=== PATIENT | male | born 1975 | race Caucasian/White ===

== ENCOUNTER 2017-10-18 18:05 | Inpatient (IN) | payer OTHER ==
[~2017-10-18] VITALS: Ht 182.9 cm; Wt 95.1 kg
[~2017-10-18 18:05] MED LIST: EPIN0.3P8 IM
[2017-10-18] MEDS ORDERED: amiodarone 150mg/dext, iso-os 100 ML IV ONE (18:07)
[2017-10-18] MEDS ORDERED: epiNEPHrine 1 mg/ml inj IV STA (18:11)
[2017-10-18] MEDS ORDERED: calcium chloride 100 MG/1 ML inj IV ONE (18:12)
[2017-10-18] MEDS ORDERED: sodium bicarbonate (8.4%) 1 mEq/ml syringe IV ONE (18:15)
[2017-10-18] MEDS ORDERED: epiNEPHrine inj 5 MG in normal saline 250ml IV soln 245 ML IV ONE (18:30)
[2017-10-18 18:41] LABS: ABG BASE EXCESS -7.9 mmol/L (-2.0-3.0); ABG OXYGEN SATURATION 92.9 % (95-98); ABG PCO2 (T) 55.7 mmHg (35.0-48.0); ABG PH (T) 7.191 (7.350-7.450); ABG PO2 (T) 78.9 mmHg (83-108); ALLEN'S TEST Positive; FCOHb 1.8 % (0.5-1.5); FMetHb 0.1 % (0.3-1.12); FO2Hb 91.1 % (94-100); PATIENT TEMPERATURE 36.5; PEEP 5 cm H2O; RESPIRATORY RATE 16 b/min; RESPIRATORY RATE (OBSERVED) 16 b/min; TIDAL VOLUME 400 mL; TOTAL HEMOGLOBIN 13.8 G/dl (14.0-18.0)
[2017-10-18] MEDS ORDERED: sodium bicarbonate (8.4%) 1 mEq/ml syringe ONE (18:41)
[2017-10-18] MEDS ORDERED: NORepinephrine 8mg/ 250ml NS 250 ML IV ONE (18:55)
[2017-10-18 19:01] LABS: URINE AMPHETAMINE SCREEN NEGATIVE (Neg); URINE BARBITUATE SCREEN NEGATIVE (Neg); URINE BENZODIAZEPINES SCREEN NEGATIVE (Neg); URINE CANNABINOID SCREEN NEGATIVE (Neg); URINE COCAINE SCREEN NEGATIVE (Neg); URINE METHADONE SCREEN NEGATIVE (Neg); URINE OPIATE SCREEN NEGATIVE (Neg); URINE PHENCYCLIDINE SCREEN NEGATIVE (Neg)
[2017-10-18] MEDS ORDERED: iohexol 350MG/ML 100ml bottle IV ONE ×2 (19:04→20:07)
[2017-10-18] MEDS ORDERED: sodium phosphate inj. 30 MMOL in dextrose 5%-water 250 ML IV PRN (19:20)
[2017-10-18] MEDS ORDERED: potassium Cl 40MEQ/NS 500ml 500 ML IV PRN ×2 (19:20)
[2017-10-18] MEDS: K, MAG and/or Phos replacement - Verify level? MC SCH (19:20)
[2017-10-18] MEDS ORDERED: magnesium 4gm in 100ml NS 100 ML IV PRN (19:20)
[2017-10-18] MEDS ORDERED: sodium phosphate inj. 15 MMOL in dextrose 5%-water 150 ML IV PRN (19:20)
[2017-10-18] MEDS ORDERED: thiamine 100mg/ml 2ml inj. IV ONE (19:20)
[2017-10-18] MEDS ORDERED: potassium Cl 40MEQ/250ML bag 250 ML IV PRN ×2 (19:20)
[2017-10-18] MEDS ORDERED: magnesium 1gm/100ml D5W IVPB 100 ML IV PRN (19:20)
[2017-10-18] MEDS ORDERED: dextrose 50%-water 50ml dispensing syringe IV PRN (19:20)
[2017-10-18] MEDS ORDERED: midazolam 100mg in NS 100ml 100 ML IV PRN (19:29)
[2017-10-18] MEDS ORDERED: FENTANYL-0.9 % NACL/PF 100 ML IV PRN (19:29)
[2017-10-18] MEDS ORDERED: fentaNYL/PF 50MCG/1 ML 2ML syringe IV PRN (19:30)
[2017-10-18] MEDS ORDERED: midazolam 2 mg/2 ml injection IV ONE (19:30)
[2017-10-18 19:46] LABS: BASOPHILS # (AUTO) 0.1 X10'3 (0-0.2); BASOPHILS % (AUTO) 0.5 % (0-1); EOSINOPHILS # (AUTO) 0.2 X10'3 (0-0.9); EOSINOPHILS % (AUTO) 2.2 % (0-6); HEMATOCRIT 39.9 % (42.0-52.0); HEMOGLOBIN 13.8 g/dl (14.0-17.9); LYMPHOCYTES # (AUTO) 3.6 X10'3 (1.1-4.8); LYMPHOCYTES % (AUTO) 36.9 % (21-51); MEAN CORPUSCULAR HEMOGLOBIN 30.8 PG (27.0-31.0); MEAN CORPUSCULAR HGB CONC 34.6 % (33.0-36.5); MEAN PLATELET VOLUME 8.5 FL (7.4-10.4); MONOCYTES # (AUTO) 0.5 X10'3 (0-0.9); MONOCYTES % (AUTO) 4.8 % (2-12); NEUTROPHILS # (AUTO) 5.5 X10'3 (1.8-7.7); NEUTROPHILS % (AUTO) 55.6 % (42-75); PLATELET COUNT 220 X10'3 (140-440); RED BLOOD COUNT 4.49 X10'6 (4.70-6.10); RED CELL DISTRIBUTION WIDTH 13.9 % (11.5-14.5); WHITE BLOOD COUNT 9.9 X10'3 (4.5-11.0)
[2017-10-18 19:52] LABS: PARTIAL THROMBOPLASTIN TIME 21 SECONDS (22-32); PROTHROMBIN TIME 10.3 SECONDS (9.0-12.0)
[2017-10-18 20:00] LABS: ALBUMIN 3.3 G/DL (3.4-5.0); ALBUMIN/GLOBULIN RATIO 1.1 (1.1-1.5); ALKALINE PHOSPHATASE 93 IU/L (46-116); BILIRUBIN,TOTAL 0.3 MG/DL (0.1-1.0); BLOOD UREA NITROGEN 28 MG/DL (7-18); BUN/CREATININE RATIO 9.1 (5.4-32.0); CALCIUM 7.8 MG/DL (8.5-10.1); CHLORIDE 99 MMOL/L (99-107); CREATININE 3.08 MG/DL (0.60-1.10); POTASSIUM 4.1 MMOL/L (3.5-5.1); TOTAL CARBON DIOXIDE 16.7 MMOL/L (24-32); TOTAL PROTEIN 6.3 G/DL (6.4-8.2); eGFR 23 ML/MIN
[2017-10-18] MEDS: pantoprazole 40 MG vial IV SCH (20:00)
[2017-10-18 20:16] LABS: ABG BASE EXCESS -1.4 mmol/L (-2.0-3.0); ABG HCO3 24.8 mmol/L (22.0-26.0); ABG OXYGEN SATURATION 98.6 % (95-98); ABG PCO2 (T) 44.3 mmHg (35.0-48.0); ABG PH (T) 7.359 (7.350-7.450); ABG PO2 (T) 158.4 mmHg (83-108); FCOHb 1.3 % (0.5-1.5); FMetHb 0.2 % (0.3-1.12); FO2Hb 97.1 % (94-100); MINUTE VOLUME 8 L/min; PATIENT TEMPERATURE 35.5; PEEP 5 cm H2O; RESPIRATORY RATE 20 b/min; RESPIRATORY RATE (OBSERVED) 20 b/min; TIDAL VOLUME 400 mL; TOTAL HEMOGLOBIN 15.6 G/dl (14.0-18.0)
[2017-10-18 20:23] LABS: LACTIC SEPSIS 2.3 MMOL/L (0.4-2.0)
[2017-10-18 20:25] LABS: ALANINE AMINOTRANSFERASE 162 U/L (12-78); ANION GAP 21 (8-16); ASPARTATE AMINO TRANSFERASE 185 U/L (10-37); GLUCOSE 354 MG/DL (70-104); SODIUM 137 MMOL/L (135-145)
[2017-10-18] MEDS: sodium chloride 0.45% 1,000 ML IV SCH (20:49)
[2017-10-18 22:45] VITALS: BP 139/98
[2017-10-18 23:00] VITALS: BP 133/71
[2017-10-18 23:15] VITALS: BP 140/99
[2017-10-18 23:26] LABS: ABG HCO3 23.4 mmol/L (22.0-26.0); ABG OXYGEN SATURATION 99.4 % (95-98); ABG PCO2 (T) 31.4 mmHg (35.0-48.0); ABG PH (T) 7.481 (7.350-7.450); ABG PO2 (T) 489.7 mmHg (83-108); ALLEN'S TEST Positive; FCOHb 0.2 % (0.5-1.5); FMetHb 0.3 % (0.3-1.12); FO2Hb 98.9 % (94-100); PATIENT TEMPERATURE 34.8; PEEP 5 cm H2O; RESPIRATORY RATE 20 b/min; RESPIRATORY RATE (OBSERVED) 20 b/min; TIDAL VOLUME 400 mL; TOTAL HEMOGLOBIN 15.9 G/dl (14.0-18.0)
[2017-10-18 23:30] VITALS: BP 119/82
[2017-10-18 23:36] LABS: ABG BASE EXCESS -2.8 mmol/L (-2.0-3.0); ABG HCO3 20.8 mmol/L (22.0-26.0); ABG OXYGEN SATURATION 99.3 % (95-98); ABG PH (T) 7.448 (7.350-7.450); ABG PO2 (T) 454.8 mmHg (83-108); ALLEN'S TEST Positive; FMetHb 0.2 % (0.3-1.12); FO2Hb 99.1 % (94-100); MINUTE VOLUME 6 L/min; PATIENT TEMPERATURE 34.7; PEEP 5 cm H2O; RESPIRATORY RATE 14 b/min; RESPIRATORY RATE (OBSERVED) 14 b/min; TIDAL VOLUME 400 mL; TOTAL HEMOGLOBIN 15.5 G/dl (14.0-18.0)
[2017-10-18 23:45] LABS: ABG BASE EXCESS -1.9 mmol/L (-2.0-3.0); ABG HCO3 23.2 mmol/L (22.0-26.0); ABG OXYGEN SATURATION 99.3 % (95-98); ABG PCO2 (T) 36.7 mmHg (35.0-48.0); ABG PH (T) 7.407 (7.350-7.450); ABG PO2 (T) 496.4 mmHg (83-108); ALLEN'S TEST Positive; FCOHb 0.3 % (0.5-1.5); FMetHb 0.2 % (0.3-1.12); FO2Hb 98.8 % (94-100); PATIENT TEMPERATURE 34.7; PEEP 5 cm H2O; RESPIRATORY RATE 10 b/min; RESPIRATORY RATE (OBSERVED) 10 b/min; TIDAL VOLUME 400 mL; TOTAL HEMOGLOBIN 15.6 G/dl (14.0-18.0)
[2017-10-19] VITALS (15 sets, daily range): BP systolic 91–140; BP diastolic 58–93
[2017-10-19 00:11] LABS: ABG BASE EXCESS -3.3 mmol/L (-2.0-3.0); ABG HCO3 25.7 mmol/L (22.0-26.0); ABG OXYGEN SATURATION 99.2 % (95-98); ABG PCO2 (T) 61.4 mmHg (35.0-48.0); ABG PH (T) 7.236 (7.350-7.450); ABG PO2 (T) 334.5 mmHg (83-108); ALLEN'S TEST Positive; FCOHb 0.1 % (0.5-1.5); FMetHb 0.2 % (0.3-1.12); FO2Hb 98.9 % (94-100); PATIENT TEMPERATURE 36.2
[2017-10-19] MEDS: sodium chloride 0.45% 1,000 ML IV SCH ×4 (00:16→12:57)
[2017-10-19 02:46] LABS: PARTIAL THROMBOPLASTIN TIME 25 SECONDS (22-32); PROTHROMBIN TIME 10.1 SECONDS (9.0-12.0)
[2017-10-19 02:48] LABS: BASOPHILS % (AUTO) 0.2 % (0-1); EOSINOPHILS # (AUTO) 0.2 X10'3 (0-0.9); LYMPHOCYTES # (AUTO) 1.9 X10'3 (1.1-4.8); LYMPHOCYTES % (AUTO) 18.6 % (21-51); MEAN CORPUSCULAR HEMOGLOBIN 30.6 PG (27.0-31.0); MEAN CORPUSCULAR HGB CONC 34.9 % (33.0-36.5); MEAN CORPUSCULAR VOLUME 87.8 FL (78-98); MEAN PLATELET VOLUME 7.8 FL (7.4-10.4); MONOCYTES # (AUTO) 0.8 X10'3 (0-0.9); MONOCYTES % (AUTO) 8.2 % (2-12); NEUTROPHILS # (AUTO) 7.3 X10'3 (1.8-7.7); PLATELET COUNT 257 X10'3 (140-440); WHITE BLOOD COUNT 10.3 X10'3 (4.5-11.0)
[2017-10-19 02:49] LABS: ALANINE AMINOTRANSFERASE 367 U/L (12-78); ALBUMIN 3.6 G/DL (3.4-5.0); ALBUMIN/GLOBULIN RATIO 1.2 (1.1-1.5); ALKALINE PHOSPHATASE 102 IU/L (46-116); AMYLASE 108 U/L (25-115); ANION GAP 10 (8-16); ASPARTATE AMINO TRANSFERASE 287 U/L (10-37); BILIRUBIN,TOTAL 0.6 MG/DL (0.1-1.0); BLOOD UREA NITROGEN 34 MG/DL (7-18); BUN/CREATININE RATIO 15.4 (5.4-32.0); CALCIUM 8.6 MG/DL (8.5-10.1); CHLORIDE 108 MMOL/L (99-107); CREATININE 2.21 MG/DL (0.60-1.10); GLUCOSE 113 MG/DL (70-104); MAGNESIUM 2.7 MG/DL (1.5-2.4); PHOSPHORUS 5.4 MG/DL (2.3-4.5); POTASSIUM 3.9 MMOL/L (3.5-5.1); SODIUM 147 MMOL/L (135-145); TOTAL CARBON DIOXIDE 28.8 MMOL/L (24-32); TOTAL PROTEIN 6.7 G/DL (6.4-8.2); eGFR 33 ML/MIN
[2017-10-19 03:20] LABS: ABG BASE EXCESS -1.7 mmol/L (-2.0-3.0); ABG HCO3 26.4 mmol/L (22.0-26.0); ABG OXYGEN SATURATION 98.3 % (95-98); ABG PCO2 (T) 52.8 mmHg (35.0-48.0); ABG PH (T) 7.304 (7.350-7.450); ABG PO2 (T) 133.3 mmHg (83-108); ALLEN'S TEST Positive; FMetHb 0.1 % (0.3-1.12); FO2Hb 98.2 % (94-100); PATIENT TEMPERATURE 34.6; PEEP 5 cm H2O; RESPIRATORY RATE 10 b/min; RESPIRATORY RATE (OBSERVED) 10 b/min; TIDAL VOLUME 400 mL; TOTAL HEMOGLOBIN 15.3 G/dl (14.0-18.0)
[2017-10-19] MEDS ORDERED: desmopressin 4 MCG/1 ML amp SQ ONE (05:20)
[2017-10-19] MEDS: pantoprazole 40 MG vial IV SCH (08:47)
[2017-10-19] MEDS: K, MAG and/or Phos replacement - Verify level? MC SCH (08:50)
[2017-10-19] MEDS ORDERED: calcium chloride 100 MG/1 ML inj IV ONE (12:00)
[2017-10-19] MEDS ORDERED: NORepinephrine bitartrate 8 MG in NS 250 ML BAG (32 mcg/ml) IV ONE (12:00)
[2017-10-19] MEDS ORDERED: magnesium 1 GM/2 ML inj ONE (12:00)
[2017-10-19] MEDS ORDERED: epiNEPHrine 0.1mg/ml 10ml syringe ONE (12:00)
[2017-10-19] MEDS ORDERED: sodium bicarbonate (8.4%) 1 mEq/ml syringe ONE (12:00)
[2017-10-19] MEDS ORDERED: amiodarone 50MG/ML inj IV ONE (12:00)
[2017-10-19 12:32] LABS: HEMOGLOBIN 13.6 g/dl (14.0-17.9); RED BLOOD COUNT 4.49 X10'6 (4.70-6.10)
[2017-10-19 12:33] LABS: BASOPHILS % (AUTO) 0.4 % (0-1); EOSINOPHILS # (AUTO) 0.3 X10'3 (0-0.9); EOSINOPHILS % (AUTO) 3.9 % (0-6); HEMATOCRIT 39.3 % (42.0-52.0); LYMPHOCYTES # (AUTO) 1.4 X10'3 (1.1-4.8); LYMPHOCYTES % (AUTO) 15.2 % (21-51); MEAN CORPUSCULAR HEMOGLOBIN 30.3 PG (27.0-31.0); MEAN CORPUSCULAR HGB CONC 34.6 % (33.0-36.5); MEAN CORPUSCULAR VOLUME 87.5 FL (78-98); MEAN PLATELET VOLUME 7.8 FL (7.4-10.4); MONOCYTES # (AUTO) 0.6 X10'3 (0-0.9); MONOCYTES % (AUTO) 7.2 % (2-12); NEUTROPHILS # (AUTO) 6.6 X10'3 (1.8-7.7); NEUTROPHILS % (AUTO) 73.3 % (42-75); PLATELET COUNT 219 X10'3 (140-440); RED CELL DISTRIBUTION WIDTH 14.3 % (11.5-14.5)
[2017-10-19 12:47] LABS: ALANINE AMINOTRANSFERASE 296 U/L (12-78); ALBUMIN 3.1 G/DL (3.4-5.0); ALBUMIN/GLOBULIN RATIO 1.1 (1.1-1.5); ALKALINE PHOSPHATASE 86 IU/L (46-116); ANION GAP 7 (8-16); ASPARTATE AMINO TRANSFERASE 141 U/L (10-37); BILIRUBIN,TOTAL 0.6 MG/DL (0.1-1.0); BLOOD UREA NITROGEN 28 MG/DL (7-18); BUN/CREATININE RATIO 13.9 (5.4-32.0); CALCIUM 8.1 MG/DL (8.5-10.1); CHLORIDE 112 MMOL/L (99-107); CREATININE 2.02 MG/DL (0.60-1.10); GLUCOSE 110 MG/DL (70-104); POTASSIUM 3.9 MMOL/L (3.5-5.1); SODIUM 148 MMOL/L (135-145); TOTAL CARBON DIOXIDE 29.4 MMOL/L (24-32); eGFR 37 ML/MIN
[2017-10-19] MEDS ORDERED: mineral oil/petrolatum ophthal oint EACHEYE SCH (20:00)
[2017-10-21 08:01] LABS: ABG BASE EXCESS -6.1 mmol/L (-2.0-3.0); ABG HCO3 18.8 mmol/L (22.0-26.0); ABG OXYGEN SATURATION 98.7 % (95-98); ABG PCO2 (T) 32.9 mmHg (35.0-48.0); ABG PH (T) 7.368 (7.350-7.450); ABG PO2 (T) 202.6 mmHg (83-108); FCOHb 0.2 % (0.5-1.5); FMetHb 0.2 % (0.3-1.12); FO2Hb 98.3 % (94-100); MINUTE VOLUME 8 L/min; PATIENT TEMPERATURE 35.4; PEEP 10 cm H2O; RESPIRATORY RATE 10 b/min; RESPIRATORY RATE (OBSERVED) 10 b/min; TIDAL VOLUME 725 mL; TOTAL HEMOGLOBIN 11.4 G/dl (14.0-18.0)
[2017-10-21 08:01] LABS: ABG BASE EXCESS -5.8 mmol/L (-2.0-3.0); ABG HCO3 19.3 mmol/L (22.0-26.0); ABG OXYGEN SATURATION 96.9 % (95-98); ABG PCO2 (T) 34.4 mmHg (35.0-48.0); ABG PH (T) 7.361 (7.350-7.450); ABG PO2 (T) 88.4 mmHg (83-108); FCOHb 0.3 % (0.5-1.5); FMetHb 0.1 % (0.3-1.12); FO2Hb 96.5 % (94-100); MINUTE VOLUME 8 L/min; PATIENT TEMPERATURE 35.7; PEEP 10 cm H2O; RESPIRATORY RATE 10 b/min; RESPIRATORY RATE (OBSERVED) 10 b/min; TIDAL VOLUME 725 mL; TOTAL HEMOGLOBIN 11.8 G/dl (14.0-18.0)
[2017-10-21 08:01] LABS: ABG BASE EXCESS -4.1 mmol/L (-2.0-3.0); ABG HCO3 20.9 mmol/L (22.0-26.0); ABG OXYGEN SATURATION 97.1 % (95-98); ABG PH (T) 7.359 (7.350-7.450); ABG PO2 (T) 95.5 mmHg (83-108); FCOHb 0.3 % (0.5-1.5); FMetHb 0.2 % (0.3-1.12); FO2Hb 96.6 % (94-100); MINUTE VOLUME 8 L/min; PEEP 5 cm H2O; RESPIRATORY RATE 10 b/min; RESPIRATORY RATE (OBSERVED) 9 b/min; TIDAL VOLUME 725 mL; TOTAL HEMOGLOBIN 11.4 G/dl (14.0-18.0)
[2017-10-21 08:01] LABS: ABG BASE EXCESS -4.9 mmol/L (-2.0-3.0); ABG HCO3 20.5 mmol/L (22.0-26.0); ABG OXYGEN SATURATION 98.2 % (95-98); ABG PCO2 (T) 38.6 mmHg (35.0-48.0); ABG PH (T) 7.341 (7.350-7.450); ABG PO2 (T) 136.3 mmHg (83-108); FCOHb 0.2 % (0.5-1.5); FMetHb 0.3 % (0.3-1.12); FO2Hb 97.7 % (94-100); MINUTE VOLUME 8 L/min; PATIENT TEMPERATURE 36.6; PEEP 10 cm H2O; RESPIRATORY RATE 10 b/min; RESPIRATORY RATE (OBSERVED) 10 b/min; TIDAL VOLUME 725 mL; TOTAL HEMOGLOBIN 11.8 G/dl (14.0-18.0)
== END 2017-10-19 14:51 | disposition expired | DRG 66 ==
LOC: ER 18:05 → ED HOLD 19:18 → CICU 2S 20:22
PROVIDERS: ADMIT Internal Medicine Critical Care Medicine; ATTEND Internal Medicine Critical Care Medicine
PROC: B32T1ZZ Computerized Tomography (CT Scan) of Left Pulmonary Artery using Low Osmolar Contrast (ICD-10-PCS; principal; 2017-10-18)
PROC: B3201ZZ Computerized Tomography (CT Scan) of Thoracic Aorta using Low Osmolar Contrast (ICD-10-PCS; 2017-10-18)
PROC: B32S1ZZ Computerized Tomography (CT Scan) of Right Pulmonary Artery using Low Osmolar Contrast (ICD-10-PCS; 2017-10-18)
PROC: B4201ZZ Computerized Tomography (CT Scan) of Abdominal Aorta using Low Osmolar Contrast (ICD-10-PCS; 2017-10-18)
PROC: B4241ZZ Computerized Tomography (CT Scan) of Superior Mesenteric Artery using Low Osmolar Contrast (ICD-10-PCS; 2017-10-18)
PROC: B4281ZZ Computerized Tomography (CT Scan) of Bilateral Renal Arteries using Low Osmolar Contrast (ICD-10-PCS; 2017-10-18)
PROC: B4211ZZ Computerized Tomography (CT Scan) of Celiac Artery using Low Osmolar Contrast (ICD-10-PCS; 2017-10-18)
PROC: B3251ZZ Computerized Tomography (CT Scan) of Bilateral Common Carotid Arteries using Low Osmolar Contrast (ICD-10-PCS; 2017-10-18)
PROC: B32G1ZZ Computerized Tomography (CT Scan) of Bilateral Vertebral Arteries using Low Osmolar Contrast (ICD-10-PCS; 2017-10-18)
PROC: B3281ZZ Computerized Tomography (CT Scan) of Bilateral Internal Carotid Arteries using Low Osmolar Contrast (ICD-10-PCS; 2017-10-18)
PROC: 4A10X4Z Monitoring of Central Nervous Electrical Activity, External Approach (ICD-10-PCS; 2017-10-18)
PROC: 02HV33Z Insertion of Infusion Device into Superior Vena Cava, Percutaneous Approach (ICD-10-PCS; 2017-10-18)
PROC: 0BH17EZ Insertion of Endotracheal Airway into Trachea, Via Natural or Artificial Opening (ICD-10-PCS; 2017-10-18)
PROC: 5A1935Z Respiratory Ventilation, Less than 24 Consecutive Hours (ICD-10-PCS; 2017-10-18)
PROC: 5A12012 Performance of Cardiac Output, Single, Manual (ICD-10-PCS; 2017-10-18)
PROC: 0D9670Z Drainage of Stomach with Drainage Device, Via Natural or Artificial Opening (ICD-10-PCS; 2017-10-18)
PROC: 03HY32Z Insertion of Monitoring Device into Upper Artery, Percutaneous Approach (ICD-10-PCS; 2017-10-19)
PROC: 4A133B1 Monitoring of Arterial Pressure, Peripheral, Percutaneous Approach (ICD-10-PCS; 2017-10-19)
PROC: 4A133J1 Monitoring of Arterial Pulse, Peripheral, Percutaneous Approach (ICD-10-PCS; 2017-10-19)
DX: I60.9 Nontraumatic subarachnoid hemorrhage, unspecified (principal); I45.10 Unspecified right bundle-branch block; I46.9 Cardiac arrest, cause unspecified; I48.0 Paroxysmal atrial fibrillation; F10.10 Alcohol abuse, uncomplicated; Y90.0 Blood alcohol level of less than 20 mg/100 ml; I95.9 Hypotension, unspecified; Z82.49 Family history of ischemic heart disease and other diseases of the circulatory system; Z52.9 Donor of unspecified organ or tissue; Z87.891 Personal history of nicotine dependence
CPT/HCPCS: 36415; 36556; 36600; 70450; 70496; 70498; 71045; 71250; 71275; 74174; 74176; 80053; 80305; 80320; 82140; 82150; 82803; 82948; 83605; 83735; 83935; 84100; 84145; 84439; 84443; 84484; 85018; 85025; 85610; 85730; 86885; 86900; 86901; 87070; 93306; 94002; 94003; 94760; 95816; 96374; 96375; 99291; 99292; A6213; A6250; A6449; A7526; C1751; C9113; J0171; J0282; J2597; J3411; J3475; J7030; Q9967

== ENCOUNTER 2017-10-19 14:31 | Inpatient (IN) | payer OTHER ==
[2017-10-19] VITALS (8 sets, daily range): BP systolic 101–124; BP diastolic 63–88
[~2017-10-19] VITALS: Ht 177 cm; Wt 95.1 kg
[2017-10-19] MEDS ORDERED: INSULIN REGULAR, HUMAN 100 UNITS in NORMAL SALINE 100ml IV SCH ×2 (15:40)
[2017-10-19] MEDS ORDERED: dextrose 50%-water 50ml dispensing syringe IV PRN ×2 (15:40)
[2017-10-19] MEDS ORDERED: potassium Cl 40MEQ/250ML bag 250 ML IV PRN (15:45)
[2017-10-19] MEDS ORDERED: MAGNESIUM 2 GRAM IN 50ML NS IV PRN (15:45)
[2017-10-19] MEDS: phenylephrine inj 10 MG in normal saline 250ml IV soln 249 ML IV SCH ×3 (15:45→22:25)
[2017-10-19] MEDS ORDERED: MAGNESIUM 4 GRAM IN 100ML NS IV PRN (15:45)
[2017-10-19] MEDS ORDERED: calcium chloride inj. 1,000 MG in normal saline 100ml BAG IV PRN (15:45)
[2017-10-19] MEDS ORDERED: NORMAL SALINE IV ONE (15:50)
[2017-10-19] MEDS ORDERED: LEVOTHYROXINE SOD IV ONE (15:50)
[2017-10-19] MEDS: pantoprazole 40 MG vial IV SCH (15:51)
[2017-10-19] MEDS ORDERED: magnesium 1gm/100ml D5W IVPB 100 ML IV PRN (15:55)
[2017-10-19] MEDS ORDERED: magnesium 4gm in 100ml NS 100 ML IV PRN (15:55)
[2017-10-19] MEDS: VASOPRESSIN 60 UNITS in NS 100ml IV SCH (16:05)
[2017-10-19 17:25] LABS: CLARITY,URINE SLIGHTLY CLOUDY (Clear); COLOR,URINE YELLOW (Yellow); GLUCOSE, URINE NEGATIVE (Neg); KETONES,URINE NEGATIVE (Neg); LEUKOCYTE ESTERASE ,URINE NEGATIVE (Neg); NITRITES, URINE NEGATIVE (Neg); OCCULT BLOOD,URINE TRACE-INTACT (Neg); PH,URINE 5.5 (4.8-8.0); PROTEIN,URINE TRACE mg/dl (Neg); UROBILINOGEN,URINE 0.2 E.U/dL (0.2-1.0)
[2017-10-19 17:27] LABS: PARTIAL THROMBOPLASTIN TIME 25 SECONDS (22-32); PROTHROMBIN TIME 10.1 SECONDS (9.0-12.0)
[2017-10-19 17:30] LABS: UA COLLECTION TYPE FOLEY CATH
[2017-10-19 17:30] LABS: BASOPHILS % (AUTO) 0.4 % (0-1); EOSINOPHILS # (AUTO) 0.4 X10'3 (0-0.9); HEMATOCRIT 39.6 % (42.0-52.0); HEMOGLOBIN 13.6 g/dl (14.0-17.9); LYMPHOCYTES # (AUTO) 1.5 X10'3 (1.1-4.8); LYMPHOCYTES % (AUTO) 13.4 % (21-51); MEAN CORPUSCULAR HEMOGLOBIN 30.3 PG (27.0-31.0); MEAN CORPUSCULAR HGB CONC 34.3 % (33.0-36.5); MEAN CORPUSCULAR VOLUME 88.5 FL (78-98); MEAN PLATELET VOLUME 8.4 FL (7.4-10.4); MONOCYTES # (AUTO) 0.8 X10'3 (0-0.9); NEUTROPHILS # (AUTO) 8.4 X10'3 (1.8-7.7); NEUTROPHILS % (AUTO) 75.2 % (42-75); PLATELET COUNT 198 X10'3 (140-440); RED BLOOD COUNT 4.48 X10'6 (4.70-6.10); RED CELL DISTRIBUTION WIDTH 14.3 % (11.5-14.5); WHITE BLOOD COUNT 11.2 X10'3 (4.5-11.0)
[2017-10-19] MEDS: potassium cl 20mEq in 1/2 NS 1,000 ML IV SCH (17:30)
[2017-10-19] MEDS: polyvinyl alcohol ophthalmic drops 15ml bottle EACHEYE SCH ×3 (17:31→21:13)
[2017-10-19 17:32] LABS: ALANINE AMINOTRANSFERASE 273 U/L (12-78); ALKALINE PHOSPHATASE 84 IU/L (46-116); ANION GAP 9 (8-16); ASPARTATE AMINO TRANSFERASE 114 U/L (10-37); BILIRUBIN,TOTAL 0.5 MG/DL (0.1-1.0); BLOOD UREA NITROGEN 26 MG/DL (7-18); BUN/CREATININE RATIO 13.7 (5.4-32.0); CHLORIDE 111 MMOL/L (99-107); GLUCOSE 108 MG/DL (70-104); POTASSIUM 3.7 MMOL/L (3.5-5.1); SODIUM 147 MMOL/L (135-145); TOTAL CARBON DIOXIDE 27.2 MMOL/L (24-32); TOTAL PROTEIN 5.9 G/DL (6.4-8.2); eGFR 39 ML/MIN
[2017-10-19 17:34] LABS: SQUAMOUS EPITHELIAL CELL,UR FEW /LPF (FEW)
[2017-10-19 17:34] LABS: AMYLASE 66 U/L (25-115); BILIRUBIN,DIRECT 0.1 MG/DL (0-0.3); CREATINE KINASE 465 U/L (39-308); LIPASE 91 U/L (73-393); MAGNESIUM 2.4 MG/DL (1.5-2.4); PHOSPHORUS 3.4 MG/DL (2.3-4.5)
[2017-10-19 17:35] LABS: BACTERIA,URINE FEW /HPF (Neg); RBC,URINE 0-2 /HPF (0-2); WBC,URINE 0-4 /HPF (0-4)
[2017-10-19 17:45] LABS: HEMOGLOBIN A1C 5.5 % (4.5-6.2)
[2017-10-19 17:50] LABS: TROPONIN I 0.71 NG/ML (0.0-0.05)
[2017-10-19 17:51] LABS: ABG HCO3 23.7 mmol/L (22.0-26.0); ABG PH (T) 7.437 (7.350-7.450); ABG PO2 (T) 88.8 mmHg (83-108); FCOHb 0.3 % (0.5-1.5); FMetHb 0.2 % (0.3-1.12); FO2Hb 96.5 % (94-100); PEEP 8 cm H2O; RESPIRATORY RATE 12 b/min; RESPIRATORY RATE (OBSERVED) 12 b/min; TIDAL VOLUME 600 mL; TOTAL HEMOGLOBIN 13.9 G/dl (14.0-18.0)
[2017-10-19] MEDS: levoTHYROXINE sod inj. 200 MCG in normal saline 500ml IV soln 490 ML IV SCH (19:00)
[2017-10-19] MEDS: albuterol 2.5 MG/3 ML nebule NEB SCH ×2 (19:02→20:00)
[2017-10-19 22:31] LABS: BASOPHILS % (AUTO) 0.4 % (0-1); EOSINOPHILS # (AUTO) 0.2 X10'3 (0-0.9); EOSINOPHILS % (AUTO) 1.8 % (0-6); HEMATOCRIT 38.3 % (42.0-52.0); HEMOGLOBIN 13.1 g/dl (14.0-17.9); LYMPHOCYTES # (AUTO) 0.6 X10'3 (1.1-4.8); MEAN CORPUSCULAR HEMOGLOBIN 30.1 PG (27.0-31.0); MEAN CORPUSCULAR HGB CONC 34.3 % (33.0-36.5); MEAN CORPUSCULAR VOLUME 87.8 FL (78-98); MEAN PLATELET VOLUME 8.3 FL (7.4-10.4); MONOCYTES # (AUTO) 0.3 X10'3 (0-0.9); MONOCYTES % (AUTO) 3.3 % (2-12); NEUTROPHILS % (AUTO) 88.5 % (42-75); PLATELET COUNT 213 X10'3 (140-440); RED BLOOD COUNT 4.36 X10'6 (4.70-6.10); RED CELL DISTRIBUTION WIDTH 14.5 % (11.5-14.5); WHITE BLOOD COUNT 10.2 X10'3 (4.5-11.0)
[2017-10-19 22:40] LABS: ABG BASE EXCESS 0.2 mmol/L (-2.0-3.0); ABG HCO3 24.3 mmol/L (22.0-26.0); ABG PH (T) 7.443 (7.350-7.450); ABG PO2 (T) 89.7 mmHg (83-108); FCOHb 0.3 % (0.5-1.5); FMetHb 0.1 % (0.3-1.12); FO2Hb 96.6 % (94-100); MINUTE VOLUME 8 L/min; PATIENT TEMPERATURE 36.1; PEEP 8 cm H2O; RESPIRATORY RATE 10 b/min; RESPIRATORY RATE (OBSERVED) 10 b/min; TIDAL VOLUME 725 mL; TOTAL HEMOGLOBIN 13.8 G/dl (14.0-18.0)
[2017-10-19 22:42] LABS: PARTIAL THROMBOPLASTIN TIME 28 SECONDS (22-32); PROTHROMBIN TIME 10.2 SECONDS (9.0-12.0)
[2017-10-19 22:51] LABS: ALANINE AMINOTRANSFERASE 244 U/L (12-78); ALKALINE PHOSPHATASE 85 IU/L (46-116); ANION GAP 7 (8-16); ASPARTATE AMINO TRANSFERASE 95 U/L (10-37); BILIRUBIN,DIRECT 0.2 MG/DL (0-0.3); BILIRUBIN,TOTAL 0.7 MG/DL (0.1-1.0); BLOOD UREA NITROGEN 24 MG/DL (7-18); BUN/CREATININE RATIO 12.4 (5.4-32.0); CHLORIDE 112 MMOL/L (99-107); CREATINE KINASE 660 U/L (39-308); CREATININE 1.93 MG/DL (0.60-1.10); GLUCOSE 136 MG/DL (70-104); MAGNESIUM 2.1 MG/DL (1.5-2.4); PHOSPHORUS 1.5 MG/DL (2.3-4.5); SODIUM 144 MMOL/L (135-145); TOTAL CARBON DIOXIDE 24.6 MMOL/L (24-32); TOTAL PROTEIN 5.9 G/DL (6.4-8.2); TROPONIN I 0.36 NG/ML (0.0-0.05); eGFR 39 ML/MIN
[2017-10-20] VITALS (24 sets, daily range): BP systolic 85–145; BP diastolic 44–84
[2017-10-20] MEDS: polyvinyl alcohol ophthalmic drops 15ml bottle EACHEYE SCH ×12 (00:11→22:55)
[2017-10-20] MEDS: phenylephrine inj 10 MG in normal saline 250ml IV soln 249 ML IV SCH ×7 (01:00→18:25)
[2017-10-20] MEDS: potassium cl 20mEq in 1/2 NS 1,000 ML IV SCH ×3 (02:00→22:55)
[2017-10-20] MEDS: albuterol 2.5 MG/3 ML nebule NEB SCH ×6 (02:24→22:23)
[2017-10-20 04:11] LABS: BASOPHILS % (AUTO) 0 % (0-1); EOSINOPHILS % (AUTO) 0 % (0-6); HEMATOCRIT 35.6 % (42.0-52.0); HEMOGLOBIN 12.1 g/dl (14.0-17.9); LYMPHOCYTES # (AUTO) 0.4 X10'3 (1.1-4.8); LYMPHOCYTES % (AUTO) 3.5 % (21-51); MEAN CORPUSCULAR HEMOGLOBIN 30.1 PG (27.0-31.0); MEAN CORPUSCULAR HGB CONC 34.1 % (33.0-36.5); MEAN CORPUSCULAR VOLUME 88.3 FL (78-98); MEAN PLATELET VOLUME 7.5 FL (7.4-10.4); MONOCYTES # (AUTO) 0.1 X10'3 (0-0.9); MONOCYTES % (AUTO) 0.8 % (2-12); NEUTROPHILS # (AUTO) 10.6 X10'3 (1.8-7.7); NEUTROPHILS % (AUTO) 95.7 % (42-75); PLATELET COUNT 177 X10'3 (140-440); RED BLOOD COUNT 4.02 X10'6 (4.70-6.10); RED CELL DISTRIBUTION WIDTH 14.3 % (11.5-14.5); WHITE BLOOD COUNT 11.1 X10'3 (4.5-11.0)
[2017-10-20 04:23] LABS: PARTIAL THROMBOPLASTIN TIME 28 SECONDS (22-32); PROTHROMBIN TIME 10.4 SECONDS (9.0-12.0)
[2017-10-20 04:29] LABS: ALANINE AMINOTRANSFERASE 210 U/L (12-78); ALBUMIN 2.8 G/DL (3.4-5.0); ALBUMIN/GLOBULIN RATIO 0.9 (1.1-1.5); ALKALINE PHOSPHATASE 79 IU/L (46-116); ANION GAP 7 (8-16); ASPARTATE AMINO TRANSFERASE 77 U/L (10-37); BILIRUBIN,DIRECT 0.1 MG/DL (0-0.3); BILIRUBIN,TOTAL 0.5 MG/DL (0.1-1.0); BLOOD UREA NITROGEN 23 MG/DL (7-18); BUN/CREATININE RATIO 10.8 (5.4-32.0); CALCIUM 7.8 MG/DL (8.5-10.1); CHLORIDE 111 MMOL/L (99-107); CREATINE KINASE 697 U/L (39-308); CREATININE 2.13 MG/DL (0.60-1.10); GLUCOSE 216 MG/DL (70-104); PHOSPHORUS 2.5 MG/DL (2.3-4.5); POTASSIUM 3.7 MMOL/L (3.5-5.1); SODIUM 143 MMOL/L (135-145); TOTAL CARBON DIOXIDE 24.8 MMOL/L (24-32); TOTAL PROTEIN 5.8 G/DL (6.4-8.2); TROPONIN I 0.15 NG/ML (0.0-0.05); eGFR 35 ML/MIN
[2017-10-20] MEDS: potassium Cl 20mEq/100mL bag 100 ML IV PRN ×2 (04:50→14:26)
[2017-10-20 05:11] LABS: ABG BASE EXCESS -2.9 mmol/L (-2.0-3.0); ABG HCO3 21.2 mmol/L (22.0-26.0); ABG OXYGEN SATURATION 94.8 % (95-98); ABG PH (T) 7.409 (7.350-7.450); ABG PO2 (T) 71.7 mmHg (83-108); FCOHb 0.3 % (0.5-1.5); FMetHb 0.1 % (0.3-1.12); FO2Hb 94.4 % (94-100); MINUTE VOLUME 8 L/min; PATIENT TEMPERATURE 36.5; PEEP 8 cm H2O; RESPIRATORY RATE 10 b/min; RESPIRATORY RATE (OBSERVED) 10 b/min; TIDAL VOLUME 725 mL; TOTAL HEMOGLOBIN 12.9 G/dl (14.0-18.0)
[2017-10-20] MEDS ORDERED: normal saline 1000ml 1,000 ML IVB ONE (05:46)
[2017-10-20] MEDS: pantoprazole 40 MG vial IV SCH (07:47)
[2017-10-20 11:14] LABS: BASOPHILS % (AUTO) 0.1 % (0-1); EOSINOPHILS % (AUTO) 0 % (0-6); HEMATOCRIT 33.2 % (42.0-52.0); HEMOGLOBIN 11.3 g/dl (14.0-17.9); LYMPHOCYTES # (AUTO) 0.4 X10'3 (1.1-4.8); LYMPHOCYTES % (AUTO) 3.1 % (21-51); MEAN CORPUSCULAR HGB CONC 33.9 % (33.0-36.5); MEAN CORPUSCULAR VOLUME 88.5 FL (78-98); MEAN PLATELET VOLUME 8.2 FL (7.4-10.4); MONOCYTES # (AUTO) 0.3 X10'3 (0-0.9); MONOCYTES % (AUTO) 2.2 % (2-12); NEUTROPHILS # (AUTO) 12.5 X10'3 (1.8-7.7); NEUTROPHILS % (AUTO) 94.6 % (42-75); PLATELET COUNT 177 X10'3 (140-440); RED BLOOD COUNT 3.75 X10'6 (4.70-6.10); RED CELL DISTRIBUTION WIDTH 14.8 % (11.5-14.5); WHITE BLOOD COUNT 13.2 X10'3 (4.5-11.0)
[2017-10-20 11:22] LABS: PARTIAL THROMBOPLASTIN TIME 29 SECONDS (22-32); PROTHROMBIN TIME 10.5 SECONDS (9.0-12.0)
[2017-10-20 11:26] LABS: ABG BASE EXCESS -4.6 mmol/L (-2.0-3.0); ABG HCO3 20.8 mmol/L (22.0-26.0); ABG OXYGEN SATURATION 95.8 % (95-98); ABG PCO2 (T) 38.1 mmHg (35.0-48.0); ABG PO2 (T) 79.8 mmHg (83-108); FCOHb 0.3 % (0.5-1.5); FMetHb 0.1 % (0.3-1.12); FO2Hb 95.4 % (94-100); MINUTE VOLUME 8 L/min; PATIENT TEMPERATURE 36.2; PEEP 10 cm H2O; RESPIRATORY RATE 10 b/min; RESPIRATORY RATE (OBSERVED) 10 b/min; TIDAL VOLUME 725 mL; TOTAL HEMOGLOBIN 12.3 G/dl (14.0-18.0)
[2017-10-20 11:30] LABS: ALANINE AMINOTRANSFERASE 192 U/L (12-78); ALBUMIN 2.5 G/DL (3.4-5.0); ALBUMIN/GLOBULIN RATIO 0.8 (1.1-1.5); ALKALINE PHOSPHATASE 73 IU/L (46-116); ANION GAP 10 (8-16); ASPARTATE AMINO TRANSFERASE 62 U/L (10-37); BILIRUBIN,DIRECT 0.1 MG/DL (0-0.3); BILIRUBIN,TOTAL 0.3 MG/DL (0.1-1.0); BLOOD UREA NITROGEN 21 MG/DL (7-18); BUN/CREATININE RATIO 10.1 (5.4-32.0); CALCIUM 7.7 MG/DL (8.5-10.1); CHLORIDE 112 MMOL/L (99-107); CREATINE KINASE 636 U/L (39-308); CREATININE 2.07 MG/DL (0.60-1.10); GLUCOSE 184 MG/DL (70-104); MAGNESIUM 1.9 MG/DL (1.5-2.4); POTASSIUM 3.9 MMOL/L (3.5-5.1); SODIUM 145 MMOL/L (135-145); TOTAL CARBON DIOXIDE 23.1 MMOL/L (24-32); TOTAL PROTEIN 5.7 G/DL (6.4-8.2); TROPONIN I 0.08 NG/ML (0.0-0.05); eGFR 36 ML/MIN
[2017-10-20] MEDS: levoTHYROXINE sod inj. 200 MCG in normal saline 500ml IV soln 490 ML IV SCH (11:45)
[2017-10-20] MEDS ORDERED: sodium phosphate inj. 30 MMOL in dextrose 5%-water 250 ML IV PRN (12:42)
[2017-10-20] MEDS ORDERED: sodium phosphate inj. 15 MMOL in dextrose 5%-water 150 ML IV PRN (12:42)
[2017-10-20 16:33] LABS: BASOPHILS # (AUTO) 0.2 X10'3 (0-0.2); BASOPHILS % (AUTO) 0.9 % (0-1); EOSINOPHILS % (AUTO) 0 % (0-6); HEMATOCRIT 32.1 % (42.0-52.0); HEMOGLOBIN 11.1 g/dl (14.0-17.9); LYMPHOCYTES # (AUTO) 0.6 X10'3 (1.1-4.8); LYMPHOCYTES % (AUTO) 3.3 % (21-51); MEAN CORPUSCULAR HEMOGLOBIN 30.3 PG (27.0-31.0); MEAN CORPUSCULAR HGB CONC 34.4 % (33.0-36.5); MEAN CORPUSCULAR VOLUME 88.1 FL (78-98); MEAN PLATELET VOLUME 8.3 FL (7.4-10.4); MONOCYTES # (AUTO) 0.4 X10'3 (0-0.9); MONOCYTES % (AUTO) 2.4 % (2-12); NEUTROPHILS # (AUTO) 17.3 X10'3 (1.8-7.7); NEUTROPHILS % (AUTO) 93.4 % (42-75); PLATELET COUNT 161 X10'3 (140-440); RED BLOOD COUNT 3.65 X10'6 (4.70-6.10); RED CELL DISTRIBUTION WIDTH 14.7 % (11.5-14.5); WHITE BLOOD COUNT 18.5 X10'3 (4.5-11.0)
[2017-10-20 16:35] LABS: CLARITY,URINE CLOUDY (Clear); COLOR,URINE YELLOW (Yellow); GLUCOSE, URINE NEGATIVE (Neg); KETONES,URINE NEGATIVE (Neg); LEUKOCYTE ESTERASE ,URINE NEGATIVE (Neg); NITRITES, URINE NEGATIVE (Neg); OCCULT BLOOD,URINE LARGE (Neg); PH,URINE 5.5 (4.8-8.0); PROTEIN,URINE NEGATIVE (Neg); UROBILINOGEN,URINE 0.2 E.U/dL (0.2-1.0)
[2017-10-20] MEDS ORDERED: ringers solution, lactated 500ml IV solution IV ONE (16:40)
[2017-10-20 16:51] LABS: UA COLLECTION TYPE NON-SPECIFIED
[2017-10-20 16:54] LABS: ALANINE AMINOTRANSFERASE 178 U/L (12-78); ALBUMIN 2.5 G/DL (3.4-5.0); ALBUMIN/GLOBULIN RATIO 0.8 (1.1-1.5); ALKALINE PHOSPHATASE 72 IU/L (46-116); ANION GAP 9 (8-16); ASPARTATE AMINO TRANSFERASE 51 U/L (10-37); BILIRUBIN,DIRECT 0.1 MG/DL (0-0.3); BILIRUBIN,TOTAL 0.2 MG/DL (0.1-1.0); BLOOD UREA NITROGEN 21 MG/DL (7-18); BUN/CREATININE RATIO 11.4 (5.4-32.0); CALCIUM 7.8 MG/DL (8.5-10.1); CHLORIDE 112 MMOL/L (99-107); CREATININE 1.85 MG/DL (0.60-1.10); GLUCOSE 197 MG/DL (70-104); MAGNESIUM 2.2 MG/DL (1.5-2.4); PHOSPHORUS 2.6 MG/DL (2.3-4.5); SODIUM 144 MMOL/L (135-145); TOTAL CARBON DIOXIDE 23.3 MMOL/L (24-32); TOTAL PROTEIN 5.7 G/DL (6.4-8.2); TROPONIN I 0.07 NG/ML (0.0-0.05); eGFR 41 ML/MIN
[2017-10-20 17:09] LABS: URIC ACID CRYSTALS 4+ /HPF (NEGATIVE)
[2017-10-20 17:10] LABS: MUCUS STRANDS FEW /LPF (Neg); RBC,URINE 50-100 /HPF (0-2); SQUAMOUS EPITHELIAL CELL,UR FEW /LPF (FEW); TRANSITIONAL EPI CELLS,URINE FEW /HPF
[2017-10-20 17:11] LABS: BACTERIA,URINE NONE SEEN /HPF (Neg); WBC,URINE NONE SEEN /HPF (0-4)
[2017-10-20] MEDS: WATER IV SCH (18:20)
[2017-10-20] MEDS: DEXTROSE 5% IV SCH (18:20)
[2017-10-20] MEDS: METHYLPREDNISOLONE SOD SUCC IV SCH (18:20)
[2017-10-20 18:25] LABS: PARTIAL THROMBOPLASTIN TIME 29 SECONDS (22-32); PROTHROMBIN TIME 10.1 SECONDS (9.0-12.0)
[2017-10-20] MEDS ORDERED: desmopressin 4 MCG/1 ML amp SQ ONE (18:30)
[2017-10-20 22:38] LABS: BASOPHILS % (AUTO) 0.2 % (0-1); EOSINOPHILS % (AUTO) 0 % (0-6); HEMATOCRIT 31.7 % (42.0-52.0); HEMOGLOBIN 10.8 g/dl (14.0-17.9); LYMPHOCYTES # (AUTO) 0.4 X10'3 (1.1-4.8); LYMPHOCYTES % (AUTO) 2.3 % (21-51); MEAN CORPUSCULAR HEMOGLOBIN 30.2 PG (27.0-31.0); MEAN CORPUSCULAR VOLUME 88.8 FL (78-98); MEAN PLATELET VOLUME 7.8 FL (7.4-10.4); MONOCYTES # (AUTO) 0.5 X10'3 (0-0.9); MONOCYTES % (AUTO) 3.3 % (2-12); NEUTROPHILS # (AUTO) 15.3 X10'3 (1.8-7.7); NEUTROPHILS % (AUTO) 94.2 % (42-75); PLATELET COUNT 164 X10'3 (140-440); RED BLOOD COUNT 3.57 X10'6 (4.70-6.10); RED CELL DISTRIBUTION WIDTH 14.9 % (11.5-14.5); WHITE BLOOD COUNT 16.3 X10'3 (4.5-11.0)
[2017-10-20 22:49] LABS: PARTIAL THROMBOPLASTIN TIME 29 SECONDS (22-32)
[2017-10-20 22:56] LABS: ALBUMIN 2.4 G/DL (3.4-5.0); ALBUMIN/GLOBULIN RATIO 0.7 (1.1-1.5); ALKALINE PHOSPHATASE 68 IU/L (46-116); ANION GAP 12 (8-16); ASPARTATE AMINO TRANSFERASE 40 U/L (10-37); BILIRUBIN,DIRECT 0.1 MG/DL (0-0.3); BILIRUBIN,TOTAL 0.3 MG/DL (0.1-1.0); BLOOD UREA NITROGEN 18 MG/DL (7-18); BUN/CREATININE RATIO 10.5 (5.4-32.0); CALCIUM 7.9 MG/DL (8.5-10.1); CHLORIDE 111 MMOL/L (99-107); CREATININE 1.72 MG/DL (0.60-1.10); GLUCOSE 168 MG/DL (70-104); MAGNESIUM 2.3 MG/DL (1.5-2.4); PHOSPHORUS 2.6 MG/DL (2.3-4.5); POTASSIUM 3.8 MMOL/L (3.5-5.1); SODIUM 144 MMOL/L (135-145); TOTAL CARBON DIOXIDE 21.1 MMOL/L (24-32); TOTAL PROTEIN 5.7 G/DL (6.4-8.2); TROPONIN I 0.04 NG/ML (0.0-0.05); eGFR 44 ML/MIN
[2017-10-20 23:07] LABS: ALANINE AMINOTRANSFERASE 163 U/L (12-78)
[2017-10-21] VITALS (25 sets, daily range): BP systolic 102–179; BP diastolic 48–105
[2017-10-21] MEDS: polyvinyl alcohol ophthalmic drops 15ml bottle EACHEYE SCH ×12 (00:59→22:46)
[2017-10-21] MEDS: phenylephrine inj 10 MG in normal saline 250ml IV soln 249 ML IV SCH ×7 (01:05→21:05)
[2017-10-21] MEDS: albuterol 2.5 MG/3 ML nebule NEB SCH ×6 (02:25→23:07)
[2017-10-21] MEDS ORDERED: furosemide 20 MG/2 ML vial IV ONE ×2 (02:35→17:15)
[2017-10-21 04:01] LABS: ABG BASE EXCESS -4.5 mmol/L (-2.0-3.0); ABG HCO3 20.2 mmol/L (22.0-26.0); ABG PCO2 (T) 34.3 mmHg (35.0-48.0); ABG PH (T) 7.382 (7.350-7.450); ABG PO2 (T) 77.4 mmHg (83-108); FCOHb 0.3 % (0.5-1.5); FMetHb 0.2 % (0.3-1.12); FO2Hb 95.5 % (94-100); MINUTE VOLUME 8 L/min; PATIENT TEMPERATURE 35.8; PEEP 10 cm H2O; RESPIRATORY RATE 10 b/min; RESPIRATORY RATE (OBSERVED) 10 b/min; TIDAL VOLUME 725 mL; TOTAL HEMOGLOBIN 11.5 G/dl (14.0-18.0)
[2017-10-21 04:24] LABS: BASOPHILS % (AUTO) 0 % (0-1); EOSINOPHILS % (AUTO) 0 % (0-6); HEMATOCRIT 30.8 % (42.0-52.0); HEMOGLOBIN 10.5 g/dl (14.0-17.9); LYMPHOCYTES # (AUTO) 0.5 X10'3 (1.1-4.8); LYMPHOCYTES % (AUTO) 2.5 % (21-51); MEAN CORPUSCULAR HEMOGLOBIN 30.3 PG (27.0-31.0); MEAN CORPUSCULAR HGB CONC 34.1 % (33.0-36.5); MONOCYTES # (AUTO) 0.6 X10'3 (0-0.9); MONOCYTES % (AUTO) 3.3 % (2-12); NEUTROPHILS # (AUTO) 17.2 X10'3 (1.8-7.7); NEUTROPHILS % (AUTO) 94.2 % (42-75); PLATELET COUNT 172 X10'3 (140-440); RED BLOOD COUNT 3.46 X10'6 (4.70-6.10); RED CELL DISTRIBUTION WIDTH 14.9 % (11.5-14.5); WHITE BLOOD COUNT 18.2 X10'3 (4.5-11.0)
[2017-10-21 04:34] LABS: PARTIAL THROMBOPLASTIN TIME 28 SECONDS (22-32)
[2017-10-21 05:01] LABS: ABG BASE EXCESS -3.9 mmol/L (-2.0-3.0); ABG PCO2 (T) 35.9 mmHg (35.0-48.0); ABG PO2 (T) 233.1 mmHg (83-108); FCOHb 0.3 % (0.5-1.5); FMetHb 0.3 % (0.3-1.12); FO2Hb 98.4 % (94-100); MINUTE VOLUME 8 L/min; PEEP 10 cm H2O; RESPIRATORY RATE 10 b/min; RESPIRATORY RATE (OBSERVED) 10 b/min; TIDAL VOLUME 725 mL; TOTAL HEMOGLOBIN 11.4 G/dl (14.0-18.0)
[2017-10-21 05:13] LABS: ALANINE AMINOTRANSFERASE 152 U/L (12-78); ALBUMIN 2.4 G/DL (3.4-5.0); ALBUMIN/GLOBULIN RATIO 0.7 (1.1-1.5); ALKALINE PHOSPHATASE 70 IU/L (46-116); ANION GAP 10 (8-16); ASPARTATE AMINO TRANSFERASE 36 U/L (10-37); BILIRUBIN,DIRECT 0.1 MG/DL (0-0.3); BILIRUBIN,TOTAL 0.2 MG/DL (0.1-1.0); BLOOD UREA NITROGEN 18 MG/DL (7-18); BUN/CREATININE RATIO 11.1 (5.4-32.0); CALCIUM 8.2 MG/DL (8.5-10.1); CHLORIDE 113 MMOL/L (99-107); CREATININE 1.62 MG/DL (0.60-1.10); GLUCOSE 188 MG/DL (70-104); MAGNESIUM 2.4 MG/DL (1.5-2.4); PHOSPHORUS 2.6 MG/DL (2.3-4.5); POTASSIUM 3.5 MMOL/L (3.5-5.1); SODIUM 146 MMOL/L (135-145); TOTAL CARBON DIOXIDE 22.7 MMOL/L (24-32); TOTAL PROTEIN 5.9 G/DL (6.4-8.2); TROPONIN I 0.04 NG/ML (0.0-0.05); eGFR 47 ML/MIN
[2017-10-21 06:58] LABS: AMYLASE 24 U/L (25-115); LIPASE 56 U/L (73-393)
[2017-10-21 07:20] LABS: HEMOGLOBIN A1C 5.6 % (4.5-6.2)
[2017-10-21 07:22] LABS: CLARITY,URINE CLEAR (Clear); COLOR,URINE YELLOW (Yellow); GLUCOSE, URINE NEGATIVE (Neg); KETONES,URINE NEGATIVE (Neg); LEUKOCYTE ESTERASE ,URINE NEGATIVE (Neg); NITRITES, URINE NEGATIVE (Neg); OCCULT BLOOD,URINE MODERATE (Neg); PH,URINE 5.5 (4.8-8.0); PROTEIN,URINE NEGATIVE (Neg); UROBILINOGEN,URINE 0.2 E.U/dL (0.2-1.0)
[2017-10-21 07:24] LABS: UA COLLECTION TYPE FOLEY CATH
[2017-10-21 07:29] LABS: URIC ACID CRYSTALS 3+ /HPF (NEGATIVE); WBC,URINE 0-4 /HPF (0-4)
[2017-10-21 07:31] LABS: BACTERIA,URINE NONE SEEN /HPF (Neg); SQUAMOUS EPITHELIAL CELL,UR FEW /LPF (FEW)
[2017-10-21 07:35] LABS: ABG BASE EXCESS -4.5 mmol/L (-2.0-3.0); ABG HCO3 20.4 mmol/L (22.0-26.0); ABG PCO2 (T) 35.9 mmHg (35.0-48.0); ABG PO2 (T) 232.5 mmHg (83-108); FCOHb 0.2 % (0.5-1.5); FLOW 100 L/min; FMetHb 0.3 % (0.3-1.12); FO2Hb 98.5 % (94-100); MINUTE VOLUME 8 L/min; PATIENT TEMPERATURE 36.4; PEEP 5 cm H2O; RESPIRATORY RATE 10 b/min; TIDAL VOLUME 725 mL; TOTAL HEMOGLOBIN 11.2 G/dl (14.0-18.0)
[2017-10-21] MEDS: pantoprazole 40 MG vial IV SCH (07:44)
[2017-10-21] MEDS ORDERED: ringers solution, lacted 1,000 ML IV ONE (08:15)
[2017-10-21] MEDS: DEXTROSE 5% IV SCH (08:59)
[2017-10-21] MEDS: METHYLPREDNISOLONE SOD SUCC IV SCH (08:59)
[2017-10-21] MEDS: WATER IV SCH (08:59)
[2017-10-21] MEDS: levoTHYROXINE sod inj. 200 MCG in normal saline 500ml IV soln 490 ML IV SCH (09:00)
[2017-10-21] MEDS: potassium cl 20mEq in 1/2 NS 1,000 ML IV SCH (09:02)
[2017-10-21] MEDS ORDERED: LIDOcaine 1%/PF 5ML 10 MG/ML VIAL ONE (10:11)
[2017-10-21 10:47] LABS: BASOPHILS % (AUTO) 0.2 % (0-1); EOSINOPHILS % (AUTO) 0 % (0-6); HEMATOCRIT 30.7 % (42.0-52.0); HEMOGLOBIN 10.4 g/dl (14.0-17.9); LYMPHOCYTES # (AUTO) 0.5 X10'3 (1.1-4.8); LYMPHOCYTES % (AUTO) 3.1 % (21-51); MEAN CORPUSCULAR HEMOGLOBIN 30.3 PG (27.0-31.0); MEAN CORPUSCULAR HGB CONC 33.9 % (33.0-36.5); MEAN CORPUSCULAR VOLUME 89.4 FL (78-98); MEAN PLATELET VOLUME 8.2 FL (7.4-10.4); MONOCYTES # (AUTO) 0.3 X10'3 (0-0.9); NEUTROPHILS # (AUTO) 15.5 X10'3 (1.8-7.7); NEUTROPHILS % (AUTO) 94.7 % (42-75); PLATELET COUNT 157 X10'3 (140-440); RED BLOOD COUNT 3.44 X10'6 (4.70-6.10); RED CELL DISTRIBUTION WIDTH 14.9 % (11.5-14.5); WHITE BLOOD COUNT 16.4 X10'3 (4.5-11.0)
[2017-10-21 10:57] LABS: PARTIAL THROMBOPLASTIN TIME 25 SECONDS (22-32)
[2017-10-21 11:04] LABS: ALANINE AMINOTRANSFERASE 138 U/L (12-78); ALBUMIN 2.4 G/DL (3.4-5.0); ALBUMIN/GLOBULIN RATIO 0.7 (1.1-1.5); ALKALINE PHOSPHATASE 69 IU/L (46-116); ANION GAP 8 (8-16); ASPARTATE AMINO TRANSFERASE 33 U/L (10-37); BILIRUBIN,DIRECT 0.1 MG/DL (0-0.3); BILIRUBIN,TOTAL 0.3 MG/DL (0.1-1.0); BLOOD UREA NITROGEN 16 MG/DL (7-18); BUN/CREATININE RATIO 10.4 (5.4-32.0); CALCIUM 8.1 MG/DL (8.5-10.1); CHLORIDE 113 MMOL/L (99-107); CREATININE 1.54 MG/DL (0.60-1.10); GLUCOSE 167 MG/DL (70-104); MAGNESIUM 2.3 MG/DL (1.5-2.4); PHOSPHORUS 2.9 MG/DL (2.3-4.5); POTASSIUM 3.8 MMOL/L (3.5-5.1); SODIUM 146 MMOL/L (135-145); TOTAL CARBON DIOXIDE 24.6 MMOL/L (24-32); TOTAL PROTEIN 5.9 G/DL (6.4-8.2); TROPONIN I < 0.04 NG/ML (0.0-0.05); eGFR 50 ML/MIN
[2017-10-21 12:55] LABS: ABG BASE EXCESS -7.7 mmol/L (-2.0-3.0); ABG HCO3 17.2 mmol/L (22.0-26.0); ABG OXYGEN SATURATION 93.3 % (95-98); ABG PCO2 (T) 32.5 mmHg (35.0-48.0); ABG PO2 (T) 71.1 mmHg (83-108); FCOHb 0.2 % (0.5-1.5); FMetHb 0.2 % (0.3-1.12); FO2Hb 92.9 % (94-100); MINUTE VOLUME 7 L/min; PATIENT TEMPERATURE 36.9; PEEP 10 cm H2O; RESPIRATORY RATE 10 b/min; RESPIRATORY RATE (OBSERVED) 10 b/min; TIDAL VOLUME 725 mL; TOTAL HEMOGLOBIN 10.9 G/dl (14.0-18.0)
[2017-10-21 13:30] LABS: ABG BASE EXCESS -3.8 mmol/L (-2.0-3.0); ABG HCO3 21.9 mmol/L (22.0-26.0); ABG OXYGEN SATURATION 98.3 % (95-98); ABG PCO2 (T) 42.3 mmHg (35.0-48.0); ABG PH (T) 7.332 (7.350-7.450); ABG PO2 (T) 144.1 mmHg (83-108); FCOHb 0.2 % (0.5-1.5); FLOW 100 L/min; FMetHb 0.2 % (0.3-1.12); FO2Hb 97.9 % (94-100); MINUTE VOLUME 8 L/min; PEEP 10 cm H2O; RESPIRATORY RATE 10 b/min; TIDAL VOLUME 725 mL
[2017-10-21 13:40] LABS: INR 0.9 INR; PROTHROMBIN TIME 9.7 SECONDS (9.0-12.0)
[2017-10-21] MEDS: VASOPRESSIN 60 UNITS in NS 100ml IV SCH (15:36)
[2017-10-21 16:32] LABS: BASOPHILS % (AUTO) 0 % (0-1); EOSINOPHILS # (AUTO) 0.2 X10'3 (0-0.9); EOSINOPHILS % (AUTO) 1.2 % (0-6); HEMATOCRIT 29.8 % (42.0-52.0); HEMOGLOBIN 10.2 g/dl (14.0-17.9); LYMPHOCYTES # (AUTO) 0.4 X10'3 (1.1-4.8); LYMPHOCYTES % (AUTO) 2.5 % (21-51); MEAN CORPUSCULAR HEMOGLOBIN 30.2 PG (27.0-31.0); MEAN CORPUSCULAR HGB CONC 34.3 % (33.0-36.5); MEAN CORPUSCULAR VOLUME 88.1 FL (78-98); MEAN PLATELET VOLUME 7.8 FL (7.4-10.4); MONOCYTES # (AUTO) 0.5 X10'3 (0-0.9); MONOCYTES % (AUTO) 3.1 % (2-12); NEUTROPHILS # (AUTO) 15.9 X10'3 (1.8-7.7); NEUTROPHILS % (AUTO) 93.2 % (42-75); PLATELET COUNT 175 X10'3 (140-440); RED BLOOD COUNT 3.39 X10'6 (4.70-6.10); RED CELL DISTRIBUTION WIDTH 14.9 % (11.5-14.5); WHITE BLOOD COUNT 17.1 X10'3 (4.5-11.0)
[2017-10-21 16:43] LABS: INR 0.9 INR; PARTIAL THROMBOPLASTIN TIME 28 SECONDS (22-32); PROTHROMBIN TIME 9.5 SECONDS (9.0-12.0)
[2017-10-21 16:57] LABS: ALANINE AMINOTRANSFERASE 133 U/L (12-78); ALBUMIN 2.3 G/DL (3.4-5.0); ALBUMIN/GLOBULIN RATIO 0.6 (1.1-1.5); ALKALINE PHOSPHATASE 68 IU/L (46-116); ANION GAP 8 (8-16); ASPARTATE AMINO TRANSFERASE 29 U/L (10-37); BILIRUBIN,DIRECT 0.1 MG/DL (0-0.3); BILIRUBIN,TOTAL 0.2 MG/DL (0.1-1.0); BLOOD UREA NITROGEN 14 MG/DL (7-18); BUN/CREATININE RATIO 9.5 (5.4-32.0); CALCIUM 8.4 MG/DL (8.5-10.1); CHLORIDE 113 MMOL/L (99-107); CREATININE 1.47 MG/DL (0.60-1.10); GLUCOSE 157 MG/DL (70-104); MAGNESIUM 2.5 MG/DL (1.5-2.4); POTASSIUM 4.1 MMOL/L (3.5-5.1); SODIUM 146 MMOL/L (135-145); TOTAL CARBON DIOXIDE 24.8 MMOL/L (24-32); TOTAL PROTEIN 5.9 G/DL (6.4-8.2); TROPONIN I < 0.04 NG/ML (0.0-0.05); eGFR 53 ML/MIN
[2017-10-21] MEDS: esmolol/sodium cl bag 250 ML IV SCH ×2 (17:22→19:20)
[2017-10-21] MEDS ORDERED: nitroPRUSSIDE sod inj. 50 MG in dextrose 5%-water 248 ML IV SCH (18:25)
[2017-10-21] MEDS ORDERED: niCARDipine-NS 40mg/200ml IVPB 200 ML IV SCH (18:45)
[2017-10-21 21:15] LABS: ABG BASE EXCESS -1.5 mmol/L (-2.0-3.0); ABG HCO3 23.3 mmol/L (22.0-26.0); ABG OXYGEN SATURATION 95.3 % (95-98); ABG PCO2 (T) 37.1 mmHg (35.0-48.0); ABG PH (T) 7.409 (7.350-7.450); ABG PO2 (T) 68.7 mmHg (83-108); FCOHb 0.2 % (0.5-1.5); FMetHb 0.1 % (0.3-1.12); MINUTE VOLUME 8 L/min; PATIENT TEMPERATURE 35.7; PEEP 8 cm H2O; RESPIRATORY RATE 10 b/min; RESPIRATORY RATE (OBSERVED) 10 b/min; TIDAL VOLUME 725 mL; TOTAL HEMOGLOBIN 11.1 G/dl (14.0-18.0)
[2017-10-21 21:26] LABS: BASOPHILS % (AUTO) 0 % (0-1); EOSINOPHILS # (AUTO) 0.2 X10'3 (0-0.9); EOSINOPHILS % (AUTO) 0.9 % (0-6); HEMATOCRIT 30.6 % (42.0-52.0); HEMOGLOBIN 10.4 g/dl (14.0-17.9); LYMPHOCYTES # (AUTO) 0.5 X10'3 (1.1-4.8); LYMPHOCYTES % (AUTO) 2.5 % (21-51); MEAN CORPUSCULAR HEMOGLOBIN 30.4 PG (27.0-31.0); MEAN CORPUSCULAR VOLUME 89.4 FL (78-98); MONOCYTES # (AUTO) 0.6 X10'3 (0-0.9); MONOCYTES % (AUTO) 3.4 % (2-12); NEUTROPHILS # (AUTO) 17.1 X10'3 (1.8-7.7); NEUTROPHILS % (AUTO) 93.2 % (42-75); PLATELET COUNT 183 X10'3 (140-440); RED BLOOD COUNT 3.42 X10'6 (4.70-6.10); RED CELL DISTRIBUTION WIDTH 15.3 % (11.5-14.5); WHITE BLOOD COUNT 18.3 X10'3 (4.5-11.0)
[2017-10-21 21:39] LABS: INR 0.9 INR; PARTIAL THROMBOPLASTIN TIME 29 SECONDS (22-32); PROTHROMBIN TIME 9.4 SECONDS (9.0-12.0)
[2017-10-21 21:42] LABS: CLARITY,URINE CLEAR (Clear); COLOR,URINE STRAW (Yellow); GLUCOSE, URINE NEGATIVE (Neg); KETONES,URINE NEGATIVE (Neg); LEUKOCYTE ESTERASE ,URINE NEGATIVE (Neg); NITRITES, URINE NEGATIVE (Neg); OCCULT BLOOD,URINE LARGE (Neg); PH,URINE 5.5 (4.8-8.0); PROTEIN,URINE NEGATIVE (Neg); UROBILINOGEN,URINE 0.2 E.U/dL (0.2-1.0)
[2017-10-21 21:46] LABS: UA COLLECTION TYPE NON-SPECIFIED
[2017-10-21 21:48] LABS: WBC,URINE NONE SEEN /HPF (0-4)
[2017-10-21 21:49] LABS: BACTERIA,URINE NONE SEEN /HPF (Neg)
[2017-10-21 21:50] LABS: SQUAMOUS EPITHELIAL CELL,UR NONE SEEN /LPF (FEW); URIC ACID CRYSTALS FEW /HPF (NEGATIVE)
[2017-10-21 22:00] LABS: ABG BASE EXCESS -1.7 mmol/L (-2.0-3.0); ABG HCO3 22.2 mmol/L (22.0-26.0); ABG OXYGEN SATURATION 97.9 % (95-98); ABG PCO2 (T) 32.8 mmHg (35.0-48.0); ABG PH (T) 7.443 (7.350-7.450); ABG PO2 (T) 103.5 mmHg (83-108); FCOHb 0.3 % (0.5-1.5); FO2Hb 97.6 % (94-100); MINUTE VOLUME 9 L/min; PATIENT TEMPERATURE 35.8; PEEP 8 cm H2O; RESPIRATORY RATE 10 b/min; RESPIRATORY RATE (OBSERVED) 10 b/min; TIDAL VOLUME 725 mL; TOTAL HEMOGLOBIN 11.1 G/dl (14.0-18.0)
[2017-10-21 22:56] LABS: ALANINE AMINOTRANSFERASE 130 U/L (12-78); ALBUMIN 2.4 G/DL (3.4-5.0); ALBUMIN/GLOBULIN RATIO 0.6 (1.1-1.5); ALKALINE PHOSPHATASE 68 IU/L (46-116); ANION GAP 7 (8-16); ASPARTATE AMINO TRANSFERASE 28 U/L (10-37); BILIRUBIN,DIRECT 0.1 MG/DL (0-0.3); BILIRUBIN,TOTAL 0.2 MG/DL (0.1-1.0); BLOOD UREA NITROGEN 14 MG/DL (7-18); BUN/CREATININE RATIO 8.9 (5.4-32.0); CALCIUM 8.6 MG/DL (8.5-10.1); CREATININE 1.57 MG/DL (0.60-1.10); GLUCOSE 164 MG/DL (70-104); MAGNESIUM 2.3 MG/DL (1.5-2.4); PHOSPHORUS 2.9 MG/DL (2.3-4.5); POTASSIUM 3.8 MMOL/L (3.5-5.1); SODIUM 145 MMOL/L (135-145); TOTAL CARBON DIOXIDE 24.7 MMOL/L (24-32); TOTAL PROTEIN 6.1 G/DL (6.4-8.2); TROPONIN I < 0.04 NG/ML (0.0-0.05); eGFR 49 ML/MIN
[2017-10-21 22:57] LABS: CHLORIDE 113 MMOL/L (99-107)
[2017-10-22 00:08] VITALS: BP_SYST 126; BP_SYST 133; BP_DIAS 61; BP_DIAS 73
[2017-10-22] MEDS: polyvinyl alcohol ophthalmic drops 15ml bottle EACHEYE SCH (00:25)
[2017-10-22] MEDS ORDERED: rocuronium 10mg/ml inj IV ONE ×2 (01:10)
[2017-10-22] MEDS ORDERED: METHYLPREDNISOLONE SOD SUCC IV ONE (08:00)
[2017-10-22] MEDS ORDERED: DEXTROSE 5% IV ONE (08:00)
[2017-10-22] MEDS ORDERED: WATER IV ONE (08:00)
== END 2017-10-22 06:49 | disposition expired | DRG 81 ==
LOC: CICU 2S 14:31
PROC: 0BC28ZZ Extirpation of Matter from Carina, Via Natural or Artificial Opening Endoscopic (ICD-10-PCS; 2017-10-20)
PROC: 0FB13ZX Excision of Right Lobe Liver, Percutaneous Approach, Diagnostic (ICD-10-PCS; principal; 2017-10-21)
PROC: 0BH17EZ Insertion of Endotracheal Airway into Trachea, Via Natural or Artificial Opening (ICD-10-PCS; 2017-10-21)
PROC: 5A1945Z Respiratory Ventilation, 24-96 Consecutive Hours (ICD-10-PCS; 2017-10-21)
DX: Z52.6 Liver donor; I60.9 Nontraumatic subarachnoid hemorrhage, unspecified; Z52.89 Donor of other specified organs or tissues
CPT/HCPCS: 31645; 47000; Z7506; 36415; 36600; 71045; 71250; 80053; 81001; 82150; 82248; 82330; 82550; 82803; 82948; 82977; 83036; 83605; 83690; 83735; 83935; 84100; 84484; 85018; 85025; 85610; 85730; 87040; 87070; 87077; 87088; 87186; 93005; 94003; 94640; 94760; A6213; A6257; A6258; A7015; C9113; J1940; J2001; J2543; J2597; J2930; J3480; J3490; J7030; J7060; J7120